=== PATIENT | male | born 1980 | race Caucasian/White ===

== ENCOUNTER → 2018-10-25 18:38 | Outpatient (CLI) | payer OTHER, SELFPAY ==
--- NOTE | 2018-10-25 | DI.MRI.S_ITS ---
PROCEDURE: MR KNEE LT WO CON INDICATIONS: pain in left knee TECHNIQUE: Noncontrast sagittal PD fast spin echo and T2 fast spin echo with fat saturation, sagittal 3-D FLASH with fat saturation; coronal T1 spin echo and PD fast spin echo with fat saturation, and axial PD fast spin echo with fat saturation through the knee. COMPARISON: None. FINDINGS: Image quality: Excellent. Menisci: There is peripheral displacement of the medial meniscus bowing medial collateral ligament. Complex oblique tear involving posterior horn of medial meniscus is seen extending to inferior articulating surface. There is also suggestion of complex tear involving anterior horn of lateral meniscus extending to superior articulating surface. The meniscal root ligaments appear intact. Cruciate ligaments: Patient is status post prior ACL reconstruction surgery. There is nonvisualization of intact ACL graft suggestive of failed graft. Posterior cruciate ligament is intact. Medial structures: There is low to moderate grade MCL sprain near its femoral insertion.. The posterior oblique ligament, semimembranosus tendon insertions, oblique popliteal ligament, and meniscocapsular junction appear intact. Visualized portions of the pes anserinus tendons appear normal. No abnormal bursal fluid. Lateral structures: The lateral collateral ligament, long and short heads of the biceps femoris tendon appear intact. The popliteus tendon appears normal; the popliteofibular ligament appears intact. The posterosuperior and anteroinferior popliteomeniscal fascicles appear intact. The arcuate and fabellofibular ligaments appear intact, on either side of the lateral inferior geniculate artery. Iliotibial band appears normal. Anterior structures: The quadriceps and patellar tendons appear intact. Patellar alignment is normal. No femoral trochlear dysplasia or ventral trochlear prominence. No edema in the infrapatellar fat pad. Bones and cartilage: Post ACL reconstruction surgery changes are noted in distal femur and proximal tibia. No gross acute fracture or dislocation. Moderate tricompartmental osteoarthritis and chondromalacia is seen most prominent involving medial femoral tibial compartment. Underlying small osteochondral lesions are likely present involving weight-bearing portion of medial femoral condyle as well as an adjacent medial and lateral tibial plateaus. Joint space: There is small amount of joint fluid. No Olivera's cyst. Normal appearing synovial plicae are incidentally noted. IMPRESSION: 1. Prior ACL reconstruction surgery with postsurgical changes. Nonvisualization of normal ACL graft suggestive of ruptured ACL graft. PCL is intact. 2. Suggestion of complex tear involving posterior horn medial meniscus extending to inferior articulating surface. Complex tear is also seen in the anterior horn of lateral meniscus extending to superior articulating surface. 3. Low to moderate grade proximal MCL sprain near its femoral insertion. 4. Moderate tricompartmental osteoarthritis most prominent in the medial femoral tibial compartment. Chondromalacia is also seen in all 3 compartments with suggestion of small osteochondral lesion involving weight-bearing portion of medial femoral condyle and weightbearing portion of medial and lateral tibial plateaus. Dictated by: Dev Oakes M.D. on 10/26/2018 at 10:37 Approved by: Dev Oakes M.D. on 10/26/2018 at 11:52
== END ==
PROVIDERS: Visit Provider Family Medicine
DX: M25.562 Pain in left knee (principal); S83.232A Complex tear of medial meniscus, current injury, left knee, initial encounter; S83.282A Other tear of lateral meniscus, current injury, left knee, initial encounter; S83.412A Sprain of medial collateral ligament of left knee, initial encounter; M17.12 Unilateral primary osteoarthritis, left knee
CPT/HCPCS: 73721

== ENCOUNTER 2018-11-19 12:05 | Emergency (ER) | payer OTHER, SELFPAY ==
--- NOTE | 2018-11-19 12:08 | DI.RAD.S_ITS ---
PROCEDURE: XR WRIST LT MIN 3V INDICATIONS: fall with pain, recent surgery on scaphoid TECHNIQUE: 4 views of the wrist were acquired. COMPARISON: None. FINDINGS: Bones: No acute fractures or dislocations. No suspicious bony lesions. There is generalized osteopenia. Post surgical changes are present with a surgical screw within the scaphoid and surgical anchors in the lunate and triquetrum. A small osseous density is seen in the dorsal aspect of the wrist, which could represent a small fracture fragment, most likely arising from the triquetrum. A corticated ossicle is also seen in the volar aspect of the proximal carpal row, likely sequelae of old injury. There is moderate radiocarpal joint degeneration. Scaphoid view: There is a surgical screw in the scaphoid for internal fixation of scaphoid waist fracture. Soft tissues: No suspicious soft tissue calcifications. There is soft tissue swelling. IMPRESSION: 1. No definitive acute fractures. Because of postsurgical changes and osteopenia, subtle acute fracture cannot be confidently excluded. If clinical symptoms persist or clinical suspicion for acute fracture is high, advanced imaging such as CT or MRI is suggested for further evaluation. 2. Old fracture of scaphoid with internal fixation. 3. Surgical anchors in lunate and triquetrum, presumably for lunotriquetral ligament repair. 4. A small osseous density in the dorsal aspect of the wrist, probably a fracture fragment related to triquetral fracture of uncertain chronicity. 5. Corticated ossicle in the volar aspect of the proximal carpal row, likely sequelae of old injury. 6. Moderately severe radiocarpal joint degeneration cyst most secondary osteoarthritis. Dictated by: Heide Pedroza M.D. on 11/19/2018 at 12:30 Approved by: Heide Pedroza M.D. on 11/19/2018 at 12:37
[2018-11-19 12:12] VITALS: BP 142/85; PULSE 80; RESP 20; TEMP 37.1; O2SAT 98; BMI 30.3
--- NOTE | 2018-11-19 13:02 | ED_ITS ---
HPI - Extremity Injury (Upper) General Chief Complaint: Extremity Injury, Upper Stated Complaint: recent surgery left hand, fall on it yesterday Time Seen by Provider: 11/19/18 12:05 Source: patient Mode of arrival: ambulatory Limitations: no limitations History of Present Illness HPI narrative: 38-year-old male nonsmoker with benign medical history presents with a chief complaint of left hand and wrist pain after falling on an outstretched arm yesterday. In August of the patient suffered an injury in which he fell from a 14 ft ladder onto that same outstretched wrist and suffered a scaphoid fracture and lunate dislocation which was repaired at [facility]. He has pain with range of motion but no decreased range and no numbness, tingling or weakness. He denies any significant pain over the anatomic snuffbox and has full range of motion at the elbow and shoulder. MD complaint: injury to: left Onset (ago): hour(s) Other injuries: none Handedness: right Place: home Severity: mild Relieving factors: rest Exacerbating factors: movement of extremity Context: fall and direct blow Associated symptoms: denies other symptoms Related Data Home Medications Medication Instructions Recorded Confirmed acetaminophen 1 dose PO PRN PRN 11/19/18 11/19/18 esomeprazole magnesium 20 mg PO DAILY 11/19/18 Allergies Allergy/AdvReac Type Severity Reaction Status Date / Time hydrocodone Allergy Verified 11/19/18 12:22 Review of Systems Constitutional Denies chills, Denies fever(s), Denies lethargy and Denies weakness Eyes Denies change in vision, Denies eye discharge, Denies irritation and Denies loss of vision ENT Ears, Nose, Mouth, and Throat: Denies change in voice, Denies neck pain and Denies sore throat Cardiovascular Denies chest pain, Denies irregular heart rhythm, Denies lightheadedness, Denies palpitations, Denies dyspnea, Denies dyspnea on exertion and Denies orthopnea Respiratory Denies cough, Denies dyspnea, Denies dyspnea on exertion and Denies wheezing Gastrointestinal Gastrointestinal: Denies abdominal pain, Denies change in bowel habits, Denies diarrhea, Denies nausea and Denies vomiting Genitourinary Denies hematuria, Denies flank pain, Denies urinary incontinence and Denies urinary urgency Musculoskeletal Denies neck pain Integumentary/Breasts Denies pruritus, Denies erythema, Denies rash and Denies wounds Neurologic Denies confusion, Denies loss of vision and Denies weakness Psychiatric Denies anxiety, Denies confusion, Denies depression, Denies homicidal ideation and Denies suicidal ideation Endocrine Denies palpitations Hematologic/Lymphatic Denies easy bruising Allergic/Immunologic Denies wheezing PFSH Social History Smoking Status: Former smoker Social History Smoking Status: Former smoker Exam Narrative Exam Narrative: GEN: AOx3 and in mild distress EYES: Pupils are equal, round, and reactive to light and accommodation. Extraoccular muscles are intact bilaterally. There is no subconjunctival hemorrhage or exudate. CHEST: Lungs are clear to auscultation bilaterally and free of wheezes, rales, or rhonchi. Heart rate is regular rhythm, there are no murmurs, clicks, rubs, or gallops. There is no chest wall tenderness. ABD: Abdomen is soft and nontender. There is no guarding or rebound. Bowel sounds are normal in all 4 quadrants. There is no mass or organomegaly. EXT: Full but painful range of motion of fingers and wrist of the left hand. There is some tenderness with range of motion of his thumb but no pain in the snuffbox or with axial loading. Some swelling though hard to tell if this is residual or not. Closed, isolated and neurovascularly intact SKIN: Warm, pink, and dry. No erythema or rash Initial Vital Signs Initial Vital Signs: Vital Signs Temperature 98.7 F 11/19/18 12:12 Pulse Rate 80 11/19/18 12:12 Respiratory Rate 20 11/19/18 12:12 Blood Pressure 142/85 H 11/19/18 12:12 Pulse Oximetry 98 11/19/18 12:12 Course Orders Ordered: ED Orders 11/19/18 12:08 XR wrist LT min 3V Stat 11/19/18 13:20 CT UE LT wo con Stat Consultations Consultation #1: call to Dr. Katherine Mo (Hand Surgeon [facility]) to discuss follow up, awaiting call back Vital Signs - 8 hr 11/19/18 12:12 11/19/18 13:23 11/19/18 13:56 Temperature 98.7 F Pulse Rate 80 62 75 Respiratory Rate 20 18 16 Blood Pressure 142/85 H 140/78 Blood Pressure [Right Arm] 140/78 Pulse Oximetry 98 100 100 MDM - Extremity Injury (Upper) Imaging Data Xray Wrist: Radiologist's impression: [address] [id number] XRay Report Signed Patient: Elmer Kimball DMR#: [id number] : 1980Acct:[id number] Age/Sex: 38 / MDate of Service: 11/19/18 Loc: ED Accession Number: [id number] Procedure: XR wrist LT min 3V Ordering Provider: Reginaldo Ram D.O. PROCEDURE: XR WRIST LT MIN 3V INDICATIONS: fall with pain, recent surgery on scaphoid TECHNIQUE: 4 views of the wrist were acquired. COMPARISON: None. FINDINGS: Bones: No acute fractures or dislocations. No suspicious bony lesions. There is generalized osteopenia. Post surgical changes are present with a surgical screw within the scaphoid and surgical anchors in the lunate and triquetrum. A small osseous density is seen in the dorsal aspect of the wrist, which could represent a small fracture fragment, most likely arising from the triquetrum. A corticated ossicle is also seen in the volar aspect of the proximal carpal row, likely sequelae of old injury. There is moderate radiocarpal joint degeneration. Scaphoid view: There is a surgical screw in the scaphoid for internal fixation of scaphoid waist fracture. Soft tissues: No suspicious soft tissue calcifications. There is soft tissue swelling. IMPRESSION: 1. No definitive acute fractures. Because of postsurgical changes and osteopenia, subtle acute fracture cannot be confidently excluded. If clinical symptoms persist or clinical suspicion for acute fracture is high, advanced imaging such as CT or MRI is suggested for further evaluation. 2. Old fracture of scaphoid with internal fixation. 3. Surgical anchors in lunate and triquetrum, presumably for lunotriquetral ligament repair. 4. A small osseous density in the dorsal aspect of the wrist, probably a fracture fragment related to triquetral fracture of uncertain chronicity. 5. Corticated ossicle in the volar aspect of the proximal carpal row, likely sequelae of old injury. 6. Moderately severe radiocarpal joint degeneration cyst most secondary osteoarthritis. Dictated by: Heide Pedroza M.D. on 11/19/2018 at 12:30 Approved by: Heide Pedroza M.D. on 11/19/2018 at 12:37 CT Wrist: Radiologist's impression: [address] [id number] [address] Scan Report Signed Patient: Elmer Kimball DMR#: [id number] : 1980Acct:[id number] Age/Sex: 38 / MDate of Service: 11/19/18 Loc: ED Accession Number: [id number] Procedure: CT UE LT wo con Ordering Provider: Reginaldo Ram D.O. PROCEDURE: CT UE LT WO CON INDICATIONS: fall with pain, recent surgery TECHNIQUE: Noncontrast 1 mm axial sections acquired through the carpal bones, with coronal and sagittal reformats. COMPARISON: [facility], CR, XR WRIST LT MIN 3V, 11/19/2018, 12:16. FINDINGS: Image quality: Excellent. Bones: Examination of left wrist shows prior internal fixation of previously noted scaphoid waist fracture. Dorsally displaced fracture fragments are also seen with well-corticated bony margin. There is partial bony union involving the volar portion of the scaphoid at the fracture site. No evidence of hardware failure. No definite hardware loosening is seen. Osteoarthritic changes are noted throughout wrist joints. Suture anchors are noted within posterior aspect of lunate and triquetrum suggest clinical correlation. Well-corticated bony fragments are also seen dorsal to the distal lunate/capitate suggestive of old displaced fracture. No acute fracture is noted. Soft tissues: There is no significant joint effusion. Visualized extensor and flexor tendons are grossly intact. No abnormal fluid collection or soft tissue mass. IMPRESSION: 1. Prior internal fixation of scaphoid with fixation screws traversing a scaphoid waist fracture site. No gross hardware loosening or failure. Partial bony union predominantly involving the volar aspect of scaphoid fracture site and adjacent to the fixation screw. 2. Fixation hardware also seen within dorsal aspect of lunate and the trique trum. 3. No gross acute fracture or dislocation. Osteoarthritis throughout wrist joints. Dictated by: Dev Oakes M.D. on 11/19/2018 at 12:21 Approved by: Dev Oakes M.D. on 11/19/2018 at 12:27 Discharge Plan Departure Patient Disposition: Home Clinical Impression: Sprain and strain of wrist Discharge Date/Time: 11/19/18 13:40 Interventions: ED Discharge Assessment Last Done: 11/19/18 13:56 Instructions: DI for Wrist Sprain Activity Restrictions/Additional Instructions: *You have been diagnosed with [wrist contusion and sprain, CT would suggest no significant injury as a consequence of her fall, existing hardware appears to be intact] *What to do: *Take medications as directed: tylenol or motrin for pain. *Follow up with your primary care provider in 2-3 days, call for an appointment. Let them know you were seen in the Emergency Department and that we ask that you be seen in follow up *Return to ER if you should have any new, worsening or concerning symptoms Prescriptions: No Action acetaminophen 325 mg tablet 1 dose PO PRN PRN (Reason: pain) RF: 0 esomeprazole magnesium 20 mg capsule,delayed release(DR/EC) 20 mg PO DAILY RF: 0
--- NOTE | 2018-11-19 13:20 | DI.CT.S_ITS ---
PROCEDURE: CT UE LT WO CON INDICATIONS: fall with pain, recent surgery TECHNIQUE: Noncontrast 1 mm axial sections acquired through the carpal bones, with coronal and sagittal reformats. COMPARISON: [facility], CR, XR WRIST LT MIN 3V, 11/19/2018, 12:16. FINDINGS: Image quality: Excellent. Bones: Examination of left wrist shows prior internal fixation of previously noted scaphoid waist fracture. Dorsally displaced fracture fragments are also seen with well-corticated bony margin. There is partial bony union involving the volar portion of the scaphoid at the fracture site. No evidence of hardware failure. No definite hardware loosening is seen. Osteoarthritic changes are noted throughout wrist joints. Suture anchors are noted within posterior aspect of lunate and triquetrum suggest clinical correlation. Well-corticated bony fragments are also seen dorsal to the distal lunate/capitate suggestive of old displaced fracture. No acute fracture is noted. Soft tissues: There is no significant joint effusion. Visualized extensor and flexor tendons are grossly intact. No abnormal fluid collection or soft tissue mass. IMPRESSION: 1. Prior internal fixation of scaphoid with fixation screws traversing a scaphoid waist fracture site. No gross hardware loosening or failure. Partial bony union predominantly involving the volar aspect of scaphoid fracture site and adjacent to the fixation screw. 2. Fixation hardware also seen within dorsal aspect of lunate and the triquetrum. 3. No gross acute fracture or dislocation. Osteoarthritis throughout wrist joints. Dictated by: Dev Oakes M.D. on 11/19/2018 at 12:21 Approved by: Dev Oakes M.D. on 11/19/2018 at 12:27
[2018-11-19 13:23] VITALS: BP 140/78; PULSE 62; RESP 18; O2SAT 100
[2018-11-19 13:56] VITALS: BP 140/78; PULSE 75; RESP 16; O2SAT 100
== END 2018-11-19 13:40 | disposition home or self-care (01) ==
PROVIDERS: Emergency Provider Emergency Medicine
DX: S63.502A Unspecified sprain of left wrist, initial encounter (principal); S66.912A Strain of unspecified muscle, fascia and tendon at wrist and hand level, left hand, initial encounter; W19.XXXA Unspecified fall, initial encounter
CPT/HCPCS: 73110; 73200; 99282; 99284

== ENCOUNTER → 2021-05-17 06:40 | Outpatient (CLI) | payer OTHER, SELFPAY ==
--- NOTE | 2021-05-17 | DI.MRI.S_ITS ---
PROCEDURE: MR KNEE LT WO CON INDICATIONS: Pain in left knee TECHNIQUE: Noncontrast sagittal PD fast spin echo and T2 fast spin echo with fat saturation, sagittal 3-D FLASH with fat saturation; coronal T1 spin echo and PD fast spin echo with fat saturation, and axial PD fast spin echo with fat saturation through the knee. COMPARISON: [facility], MR, MR KNEE LT WO CON, 10/25/2018, 18:46. FINDINGS: Image quality: Excellent. Menisci: Medial and lateral meniscal extrusions. There is degenerative tear/intrasubstance degeneration of the posterior horn body of the medial meniscus. There is horizontal tear of the anterior horn of the lateral meniscus. The meniscal root ligaments appear intact. Cruciate ligaments: There are postsurgical changes for anterior cruciate ligament repair. The ACL graft is torn and not visualized. The posterior cruciate ligament appears intact. Medial structures: Mild thickening and irregularity of medial collateral ligament without acute tear. There is thickening and increased T2 signal of the the semimembranosus tendon insertions consistent with mild spurring/scarring. The meniscocapsular junction appear intact. Visualized portions of the pes anserinus tendons appear intact. Small semimembranous bursal fluid consistent with mild bursitis. Lateral structures: The lateral collateral ligament, long and short heads of the biceps femoris tendon appear intact. The popliteus tendon appears normal; the popliteofibular ligament appears intact. The posterosuperior and anteroinferior popliteomeniscal fascicles appear intact. The arcuate and fabellofibular ligaments appear intact, on either side of the lateral inferior geniculate artery. Iliotibial band appears normal, without findings to suggest friction syndrome. Anterior structures: The quadriceps and patellar tendons appear intact. Patellar alignment is normal. No femoral trochlear dysplasia or ventral trochlear prominence. No edema in the infrapatellar fat pad. Bones and cartilage: Mild lateral translation of tibia. No fracture. There is reactive bone marrow edema in femoral condyles and tibial plateaus. Tricompartmental chondromalacia, most pronounced in the medial femorotibial compartment. Joint space: There is trace knee joint effusion. No Olivera's cyst. Several small cysts are seen in the anterior medial aspect of the knee joint measuring up to 1.1 cm, new since the last exam. No intra-articular bodies. Normal appearing synovial plicae are incidentally noted. IMPRESSION: 1. Postsurgical changes related to ACL reconstruction. Nonvisualization of ACL graft is consistent with complete tear. 2. Intact PCL. 3. Degenerative tear/intrasubstance degeneration of the posterior horn and body of the medial meniscus. 4. Horizontal tear of the anterior horn of the lateral meniscus. 5. Mild lateral translation of tibia at the femorotibial joint. 6. Tricompartmental chondromalacia, most pronounced in the medial femorotibial joint. 7. Mild medial bursitis. 8. Several cysts are seen in the anterior medial aspect of the knee joint. Differential diagnoses include synovial cysts, meniscal cysts or ganglion cysts. Dictated by: Heide Pedroza M.D. on 05/17/2021 at 8:50 Approved by: Heide Pedroza M.D. on 05/17/2021 at 11:26
== END ==
PROVIDERS: Referring Provider Family Medicine; Visit Provider Family Medicine
DX: S83.512A Sprain of anterior cruciate ligament of left knee, initial encounter (principal); S83.242A Other tear of medial meniscus, current injury, left knee, initial encounter; S83.282A Other tear of lateral meniscus, current injury, left knee, initial encounter; M94.262 Chondromalacia, left knee; M71.562 Other bursitis, not elsewhere classified, left knee; M25.562 Pain in left knee
CPT/HCPCS: 73721